=== PATIENT | female | born 1965 | race Caucasian/White ===

== ENCOUNTER → 2020-04-03 | Emergency (ER) | payer OTHER ==
[~2020-04-03] VITALS: Ht 160 cm; Wt 64.4 kg
[~2020-04-03] MED LIST: DICLOFENAC SODI75 MG PO; NORFLEX100MG PO
== END | disposition home or self-care (01) ==
LOC: ER 17:29
DX: S13.4XXA Sprain of ligaments of cervical spine, initial encounter (principal); S80.02XA Contusion of left knee, initial encounter; S90.02XA Contusion of left ankle, initial encounter; V49.9XXA Car occupant (driver) (passenger) injured in unspecified traffic accident, initial encounter; Y93.89 Activity, other specified; Y92.488 Other paved roadways as the place of occurrence of the external cause; Y99.8 Other external cause status